=== PATIENT | female | born 1970 | race Caucasian/White ===

== ENCOUNTER → 2017-08-03 08:17 | Outpatient (CLI) | payer OTHER, SELFPAY ==
--- NOTE | 2017-08-03 08:22 | MM_ITS ---
MM Dig screening mamm BI w/CAD CAD Screening ORDERING PHYSICIAN : Pollo Davey MD PATIENT AGE: 47 years GENDER: Female COMPARISON: No prior studies available for comparison. An [id number] from today INDICATION: TECHNIQUE: Standard CC and MLO images were obtained. Additional left breast CC and MLO nipple profile view. Cleavage view of the medial both right & left breast included. R2 CAD reviewed. FINDINGS: Low-density breast bilaterally with no dominant mass nor suspicious calcifications in either breast. RIGHT BREAST:No significant findings. Very minor asymmetry with some minimal density at the superior right breast which the changes from one view to the other. Not of concern follow-up in one year adequate LEFT BREAST:No areas of concern follow-up in one year. IMPRESSION: Negative bilateral mammogram. No areas of significant concern. Follow up one year recommended. BI-RADS Category: 1 Negative RECOMMENDED FOLLOW-UP: 1YR - 1 YEAR FOLLOW-UP (A letter has been sent to the patient regarding results of the study.)
== END ==
PROVIDERS: PCP Family Medicine; Visit Provider Family Medicine
DX: Z12.31 Encounter for screening mammogram for malignant neoplasm of breast (principal)
CPT/HCPCS: 77067

== ENCOUNTER → 2018-09-10 16:18 | Outpatient (CLI) | payer OTHER, SELFPAY ==
--- NOTE | 2018-09-10 16:22 | MM_ITS ---
MM Dig screening mamm BI w/CAD ORDERING PHYSICIAN : Pollo Davey MD PATIENT AGE: 48 years GENDER: Female COMPARISON: July 20142017 digital mammogram studies INDICATION: Routine screening mammogram. No hormones. No new complaints. Noncontributory family history. TECHNIQUE: Standard CC and MLO images were obtained. R2 CAD reviewed. Additional left CC and MLO view nipple profile included FINDINGS: Low-density breast bilaterally. Generalized fatty replacement. No new areas of concern in either breast. CAD computer view highlights no areas of concern either. Bilateral follow-up one year recommended IMPRESSION: Stable bilateral mammogram. No significant new areas of concern. Lower density breast/moderate generalized fatty replacement. Bilateral follow-up one year recommended BI-RADS Category: 1 Negative RECOMMENDED FOLLOW-UP: 1YR 1 YEAR FOLLOW-UP (A letter has been sent to the patient regarding results of the study.)
== END ==
PROVIDERS: PCP Family Medicine; Visit Provider Family Medicine
DX: Z12.31 Encounter for screening mammogram for malignant neoplasm of breast (principal)
CPT/HCPCS: 77067

== ENCOUNTER → 2019-09-30 16:21 | Outpatient (CLI) | payer OTHER, SELFPAY ==
--- NOTE | 2019-09-30 | MM_ITS ---
PROCEDURE: MM DIG SCREENING MAMM BI W/CAD Digital Breast Tomosynthesis Included CLINICAL INDICATION: ROUTINE SCREENING There is no personal or family history of breast cancer. COMPARISON: GB MAMM SCREEN BILAT DIG PNL from 08/07/2014 [facility] MM Dig screening mamm BI w/CAD from 08/03/2017 DIG MAMM-SCREEN [facility]ON from 09/10/2018 TECHNIQUE: Standard CC and MLO images and 3D Tomosynthesis was obtained. R2 CAD reviewed. FINDINGS: The breasts are composed primarily of fat with scattered fibroglandular densities in both breast and the findings are bilateral and symmetrical. There is no suspicious lesion in either breast and no suspicious microcalcifications. IMPRESSION: Fibrofatty parenchyma with no suspicious lesions seen BI-RAD Category: 1 Negative FOLLOW-UP: 1YR 1 Year Follow-up (A letter has been sent to the patient regarding results of the study.) Dictated by: Dr. Ramana Chang MD 10/03/2019 11:[address] Ramana Chang MD in [place] 10/03/2019 11:07
== END ==
PROVIDERS: PCP Family Medicine; Visit Provider Family Medicine
DX: Z12.31 Encounter for screening mammogram for malignant neoplasm of breast (principal)
CPT/HCPCS: 77063; 77067

== ENCOUNTER → 2019-11-24 13:10 | Outpatient (CLI) | payer OTHER, SELFPAY ==
[2019-11-25 17:06] LABS: Covid-19 Nasal PCR Sendout Lex NOT DETECTED
== END ==
PROVIDERS: Visit Provider Internal Medicine Adolescent Medicine
DX: Z03.818 Encounter for observation for suspected exposure to other biological agents ruled out (principal)
CPT/HCPCS: U0004

== ENCOUNTER → 2020-10-26 07:47 | Outpatient (CLI) | payer OTHER, SELFPAY ==
--- NOTE | 2020-10-26 07:51 | MM_ITS ---
PROCEDURE: MM DIG SCREENING MAMM BI W/CAD Digital Breast Tomosynthesis Included CLINICAL INDICATION: SCREENING COMPARISON: MG [facility] MM Dig screening mamm BI w/CAD from 08/03/2017 MG DIG MAMM-SCREEN [facility] from 09/10/2018 MG MM DIG SCREENING MAMM BI W/CAD from 09/30/2019 TECHNIQUE: Standard CC and MLO images and 3D Tomosynthesis was obtained. R2 CAD reviewed. FINDINGS: Mostly fatty replaced fibroglandular tissue. No malignant appearing mass or malignant-appearing microcalcification. IMPRESSION: Negative no evidence of malignancy BI-RAD Category: 1 Negative FOLLOW-UP: 1 YR 1 Year Follow-up (A letter has been sent to the patient regarding results of the study.) Dictated by: Renaldo Prescott MD 10/29/2020 17:37 Renaldo Prescott MD in [place] 10/29/2020 17:37
== END ==
PROVIDERS: PCP Family Medicine; Visit Provider Family Medicine
DX: Z12.31 Encounter for screening mammogram for malignant neoplasm of breast (principal)
CPT/HCPCS: 77063; 77067

== ENCOUNTER → 2021-02-04 08:58 | Outpatient (CLI) | payer OTHER, SELFPAY ==
[2021-02-04 09:10] LABS: Influenza A, PCR Not Detected (NotDetected); Influenza B, PCR Not Detected (NotDetected)
[2021-02-04 09:35] LABS: Coronavirus 19, PCR Detected (NotDetected)
== END ==
PROVIDERS: PCP Family Medicine; Visit Provider Nurse Practitioner
DX: Z20.822 Contact with and (suspected) exposure to COVID-19 (principal); U07.1 COVID-19
CPT/HCPCS: C9803; U0003; U0005

== ENCOUNTER 2021-02-14 11:20 | Outpatient (CLI) | payer OTHER, SELFPAY ==
[2021-02-14 11:49] VITALS: BP 111/70; PULSE 89; RESP 18; TEMP 36.6; O2SAT 99
[2021-02-14 12:49] VITALS: BP 141/77; PULSE 88; RESP 16; TEMP 36.8; O2SAT 99
== END 2021-02-14 12:51 | disposition home or self-care (01) ==
LOC: INF 11:22
PROVIDERS: PCP Family Medicine; Visit Provider Family Medicine
DX: U07.1 COVID-19 (principal); E86.0 Dehydration
CPT/HCPCS: 96360

== ENCOUNTER → 2021-07-01 08:34 | Outpatient (CLI) | payer OTHER, SELFPAY ==
[2021-07-01 10:32] LABS: Alanine Aminotransferase 27 U/L (12-78); Albumin Level 4.4 g/dl (3.5-5.0); Albumin/Globulin Ratio 1.8 (1.1-1.8); Alkaline Phosphatase 60 U/L (38-126); Anion Gap 12.4 mEq/L (5-15); Aspartate Amino Transferase 25 U/L (14-36); Bilirubin,Total 1.1 mg/dl (0.2-1.3); Blood Urea Nitrogen 7 mg/dl (7-17); Calcium 9.5 mg/dl (8.4-10.2); Carbon Dioxide 26 mmol/L (22.0-30.0); Chloride 107 mmol/L (98-107); Chol/HDL Ratio 4.6 (1-3.5); Cholesterol 178 mg/dl (140-200); Estimated Glomerular Filt Rate 75 ml/min (>60); GFR (African American) 91 ML/MIN (>60); Globulin 2.4 g/dL (1.3-3.2); Glucose 96 mg/dl (74-100); HDL Cholesterol 39 mg/dl (40-60); Potassium 4.4 mmoL/L (3.5-5.1); Sodium 141 mmol/L (136-145); Total Protein,Serum 6.8 g/dl (6.3-8.2); Triglycerides 185 mg/dl (30-150); VLDL Cholesterol 37 mg/dL (0-40)
[2021-07-01 10:43] LABS: Direct LDL Cholesterol 92.94 mg/dL (100-129)
[2021-07-01 10:55] LABS: Hemoglobin A1C 5.7 % (4.0-6.0)
== END ==
LOC: LAB 08:35
PROVIDERS: PCP Family Medicine; Visit Provider Family Medicine
DX: I10 Essential (primary) hypertension (principal); E78.5 Hyperlipidemia, unspecified; R73.9 Hyperglycemia, unspecified
CPT/HCPCS: 36415; 80053; 80061; 83036

== ENCOUNTER 2021-07-28 09:28 | Day surgery (SDC) | payer OTHER, SELFPAY ==
[2021-07-21 11:30] VITALS: BMI 37.9
[2021-07-28 09:54] VITALS: BP 136/102; PULSE 88; RESP 18; TEMP 37.1; O2SAT 98
[2021-07-28 10:24] VITALS: O2SAT 98
--- NOTE | 2021-07-28 10:48 | HMH.SCOPE ---
- Procedure: Date: 07/28/21 Patient Date of :: 1970 Procedure Performed:: Screening colonoscopy Indications:: At appropriate age for screening exam Performing Provider:: Shanelle Houser MD Referring Provider:: Pollo Davey MD Sedation:: Propofol Procedure:: After placing the patient in the left lateral decubitus position, the colonoscopy was gently inserted into the rectum and under direct visualization advanced to the cecum which was identified by transillumination in the right lower quadrant, identification of the ileocecal valve, appendiceal orifice, and cecal strap. Color, texture, mucosa, and anatomy of the colon were carefully examined with the scope. Findings:: Anal canal: normal Rectum: normal Sigmoid colon: normal without polyps or inflammatory changes Descending colon: normal without polyps or inflammatory changes Splenic flexure: normal Transverse colon: normal without polyps or inflammatory changes Hepatic flexure: normal Ascending colon: normal without polyps or inflammatory changes Cecum: normal Terminal ileum: not visualized Impression: Normal colonoscopy exam Recommendations:: Repeat colonoscopy exam in about TEN years or so, sooner if clinically indicated Complications:: None Estimated blood obtained (mL): 0
[2021-07-28 10:50] VITALS: BP 85/65; PULSE 80; RESP 18; TEMP 36.7; O2SAT 90
[2021-07-28 11:00] VITALS: BP 105/85; PULSE 91; RESP 16; O2SAT 96
[2021-07-28 11:10] VITALS: BP 118/68; PULSE 77; RESP 16; O2SAT 96
[2021-07-28 11:35] VITALS: BP 134/70; PULSE 67; RESP 16; TEMP 36.7; O2SAT 99
--- NOTE | 2021-07-28 11:57 | P.PN_ITS ---
[facility] Anesthesia Checklist - Patient Identification Patient Identification: Arm Band - Structural Data Admitted From: Home Planned Operative Procedure/s: Colonoscopy Consent for Planned Operative Procedure(s) Verified: Yes Verified Documents: Surgical Consent - NPO Status Verified Time NPO: 04:00 - Airway Assessment C-Spine Mobility Assessed: Yes TMJ Mobility Assessed: Yes Dentition: Good Dentition - Neurological Assessment Level of Consciousness: Awake, Alert, Appropriate - Anesthesia Plan Anesthesia Risk discussed: Yes ASA Class: II Anesthesia Type: MAC [facility] History I have reviewed the patient's past medical history: Yes Medical History: Denies:: Cancer, Diabetes Mellitus Type 1, Diabetes Mellitus Type 2, Internal Pacemaker, MRSA, Seizures *Have you ever received a pneumonia vaccine?: No *Have you received a flu vaccine this season?: Yes Anesthesia experience/problems:: none Other Surgeries: Yes: Hysterectomy-Total. No: Pacemaker Amputation: No Fractures: No - *Social History Last grade of school completed: High school graduate Smoking Status: Never smoker Alcohol Intake: never Substance Use Type: denies use *Occupational Status:: employed Housing: house Household Members: spouse *Travel in the last 8 weeks: None Family Hx:: No significant family history
== END 2021-07-28 11:35 | disposition home or self-care (01) ==
LOC: OUTP 09:29
PROVIDERS: PCP Family Medicine; Visit Provider Internal Medicine Gastroenterology
PROC: 0DJD8ZZ Inspection of Lower Intestinal Tract, Via Natural or Artificial Opening Endoscopic (ICD-10-PCS; CPT 45378; principal; 2021-07-28 10:30)
DX: Z12.11 Encounter for screening for malignant neoplasm of colon (principal); E78.5 Hyperlipidemia, unspecified; I10 Essential (primary) hypertension; Z79.899 Other long term (current) drug therapy
CPT/HCPCS: 45378

== ENCOUNTER → 2021-11-01 07:56 | Outpatient (CLI) | payer OTHER, SELFPAY ==
--- NOTE | 2021-11-01 08:02 | MM_ITS ---
PROCEDURE INFORMATION: Exam: MG Bilateral Screening 3D Mammography Exam date and time: 11/01/2021 8:00 AM Age: 51 years old Clinical indication: Screening examination TECHNIQUE: Imaging protocol: Bilateral Screening tomosynthesis and 2D mammography including computer-aided detection (CAD) when performed. COMPARISON: 1. MG MM DIG SCREENING MAMM BI W/CAD 10/26/2020 8:01 AM 2. MG MM DIG SCREENING MAMM BI W/CAD 09/30/2019 4:31 PM 3. MG DIG MAMM-SCREEN [facility] 09/10/2018 4:28 PM 4. MG [facility] MM Dig screening mamm BI w/CAD 08/03/2017 8:37 AM FINDINGS: MAMMOGRAPHY: Breast composition: There are scattered areas of fibroglandular density. Mass: None. Architectural distortion: No new or suspicious architectural distortion. Calcifications: No new or suspicious calcifications are present Asymmetric density: No new or suspicious asymmetric density is present Skin thickening: None. Axillary adenopathy: None. IMPRESSION: No mammographic evidence of malignancy. Recommend annual screening mammography unless otherwise clinically indicated. ASSESSMENT: BI-RADS category 1: Negative
== END ==
PROVIDERS: PCP Family Medicine; Visit Provider Family Medicine
DX: Z12.31 Encounter for screening mammogram for malignant neoplasm of breast (principal)
CPT/HCPCS: 77063; 77067

== ENCOUNTER → 2022-10-12 07:31 | Outpatient (CLI) | payer OTHER, SELFPAY ==
[2022-10-12 08:18] LABS: Alanine Aminotransferase 31 U/L (12-78); Albumin Level 4.5 g/dl (3.5-5.0); Albumin/Globulin Ratio 1.8 (1.1-1.8); Alkaline Phosphatase 69 U/L (38-126); Anion Gap 12.3 mEq/L (5-15); Aspartate Amino Transferase 25 U/L (14-36); Bilirubin,Total 1.3 mg/dl (0.2-1.3); Blood Urea Nitrogen 10 mg/dl (7-17); Calcium 9.5 mg/dl (8.4-10.2); Carbon Dioxide 24 mmol/L (22.0-30.0); Chloride 109 mmol/L (98-107); Chol/HDL Ratio 4.1 (1-3.5); Cholesterol 172 mg/dl (140-200); Estimated Glomerular Filt Rate 75 ml/min (>60); GFR (African American) 91 ML/MIN (>60); Globulin 2.5 g/dL (1.3-3.2); Glucose 110 mg/dl (74-100); HDL Cholesterol 42 mg/dl (40-60); Potassium 4.3 mmoL/L (3.5-5.1); Sodium 141 mmol/L (136-145); Triglycerides 157 mg/dl (30-150); VLDL Cholesterol 31 mg/dL (0-40)
[2022-10-12 08:29] LABS: Direct LDL Cholesterol 96.37 mg/dL (100-129)
== END ==
LOC: LAB 07:33
PROVIDERS: PCP Family Medicine; Visit Provider Family Medicine
DX: I10 Essential (primary) hypertension (principal); E78.5 Hyperlipidemia, unspecified
CPT/HCPCS: 36415; 80053; 80061

== ENCOUNTER → 2022-11-13 07:52 | Outpatient (CLI) | payer OTHER, SELFPAY ==
--- NOTE | 2022-11-13 07:58 | MM_ITS ---
PROCEDURE INFORMATION: Exam: MG Bilateral Screening 3D Mammography Exam date and time: 11/13/2022 7:56 AM Age: 52 years old Clinical indication: Screening examination TECHNIQUE: Imaging protocol: Bilateral Screening tomosynthesis and 2D mammography including computer-aided detection (CAD) when performed. COMPARISON: 1. MG MM DIG SCREENING MAMM BI W/CAD 11/01/2021 8:00 AM 2. MG MM DIG SCREENING MAMM BI W/CAD 10/26/2020 8:01 AM FINDINGS: MAMMOGRAPHY: Breast composition: The breasts are almost entirely fatty. Mass: None. Architectural distortion: None. Calcifications: No suspicious calcifications. Asymmetric density: None. Skin thickening: None. Axillary adenopathy: None. IMPRESSION: No mammographic evidence of malignancy. Annual screening is recommended unless otherwise clinically indicated. ASSESSMENT: BI-RADS Category 1: Negative
== END ==
PROVIDERS: PCP Family Medicine; Visit Provider Family Medicine
DX: Z12.31 Encounter for screening mammogram for malignant neoplasm of breast (principal)
CPT/HCPCS: 77063; 77067

== ENCOUNTER 2023-09-24 07:24 | Outpatient (CLI) | payer OTHER, SELFPAY ==
[2023-09-24 08:13] LABS: Chloride 108 mmol/L (98-107); Potassium 4.1 mmoL/L (3.5-5.1); Sodium 140 mmol/L (136-145)
[2023-09-24 08:15] LABS: Blood Urea Nitrogen 12 mg/dl (7-17)
[2023-09-24 08:16] LABS: Alanine Aminotransferase 26 U/L (12-78); Albumin Level 4.1 g/dl (3.5-5.0); Albumin/Globulin Ratio 1.5 (1.1-1.8); Alkaline Phosphatase 62 U/L (38-126); Anion Gap 14.1 mEq/L (5-15); Aspartate Amino Transferase 25 U/L (14-36); Bilirubin,Total 0.8 mg/dl (0.2-1.3); Carbon Dioxide 22 mmol/L (22.0-30.0); Cholesterol 273 mg/dl (140-200); Estimated Glomerular Filt Rate 65 ml/min (>60); GFR (African American) 79 ML/MIN (>60); Globulin 2.7 g/dL (1.3-3.2); Total Protein,Serum 6.8 g/dl (6.3-8.2); Triglycerides 201 mg/dl (30-150); VLDL Cholesterol 40 mg/dL (0-40)
[2023-09-24 08:17] LABS: Calcium 9.4 mg/dl (8.4-10.2); Glucose 110 mg/dl (74-100); HDL Cholesterol 39 mg/dl (40-60)
[2023-09-24 08:27] LABS: Direct LDL Cholesterol 176.14 mg/dL (100-129)
== END 2023-09-24 23:59 | disposition home or self-care (01) ==
LOC: LAB 07:24
PROVIDERS: PCP Family Medicine; Visit Provider Family Medicine
DX: I10 Essential (primary) hypertension (principal); E78.5 Hyperlipidemia, unspecified
CPT/HCPCS: 36415; 80053; 80061

== ENCOUNTER 2023-12-27 07:48 | Outpatient (CLI) | payer OTHER, SELFPAY ==
--- NOTE | 2023-12-27 07:51 | MM_ITS ---
PROCEDURE INFORMATION: Exam: MG Bilateral Screening 3D Mammography Exam date and time: 12/27/2023 7:54 AM Age: 53 years old Clinical indication: Screening examination TECHNIQUE: Imaging protocol: Bilateral Screening tomosynthesis and 2D mammography including computer-aided detection (CAD) when performed. COMPARISON: 1. MG MM DIG SCREENING MAMM BI W/CAD 11/13/2022 7:56 AM 2. MG MM DIG SCREENING MAMM BI W/CAD 11/01/2021 8:00 AM FINDINGS: MAMMOGRAPHY: Breast composition: There are scattered areas of fibroglandular density. Mass: No suspicious masses. Architectural distortion: None. Calcifications: No suspicious calcifications. Asymmetric density: None. Skin thickening: None. Axillary adenopathy: None. IMPRESSION: No mammographic evidence of malignancy. Annual screening is recommended unless otherwise clinically indicated. ASSESSMENT: BI-RADS Category 1: Negative.
== END 2023-12-27 23:59 | disposition home or self-care (01) ==
LOC: RAD 07:49
PROVIDERS: PCP Family Medicine; Visit Provider Family Medicine
DX: Z12.31 Encounter for screening mammogram for malignant neoplasm of breast (principal)
CPT/HCPCS: 77063; 77067

== ENCOUNTER 2024-09-24 07:28 | Outpatient (CLI) | payer OTHER, SELFPAY ==
[2024-09-24 08:37] LABS: Basophils # 0.1 K/mm3 (0-0.2); Basophils % 0.8 % (0.1-2.0); Eosinophils # 0.3 Kmm3 (0.0-0.4); Eosinophils % 3.1 % (0.1-12.0); Hematocrit 44.5 % (37.0-47.0); Hemoglobin 14.4 g/dL (12.2-16.2); Immature Granulocytes # 0.07 10^3uL; Immature Granulocytes % 0.8 %; Lymphocytes # 2.8 K/mm3 (0.7-4.5); Lymphocytes % 31.2 % (10-50); Mean Corpuscular HGB Conc 32.4 g/dL (31.8-35.4); Mean Corpuscular Hemoglobin 27.4 pg (27.0-31.2); Mean Corpuscular Volume 84.6 fl (81-99); Mean Platelet Volume 9.5 fl (7.4-10.4); Monocytes # 0.7 K/mm3 (0.1-1.0); Monocytes % 7.6 % (1.7-9.3); Neutrophils # 5.1 K/mm3 (1.8-7.8); Neutrophils % 56.5 % (37.0-80.0); Nucleated Red Blood Cells # 0 10^3/uL; Nucleated Red Blood Cells % 0 %; Platelet Count 231 K/mm3 (142-424); Red Blood Count 5.26 M/mm3 (4.20-5.40); Red Cell Distribution Width 13.7 % (11.5-17.5); Red Cell Distribution Width-SD 41.7 fL; White Blood Count 9.1 K/mm3 (4.8-10.8)
[2024-09-24 09:04] LABS: Albumin Level 4.3 g/dl (3.5-5.0); Chloride 103 mmol/L (98-107); Potassium 4.5 mmoL/L (3.5-5.1); Sodium 140 mmol/L (136-145)
[2024-09-24 09:07] LABS: Alanine Aminotransferase 23 U/L (12-78); Albumin/Globulin Ratio 1.5 (1.1-1.8); Alkaline Phosphatase 55 U/L (38-126); Anion Gap 15.5 mEq/L (5-15); Aspartate Amino Transferase 27 U/L (14-36); Blood Urea Nitrogen 9 mg/dl (7-17); Calcium 9.5 mg/dl (8.4-10.2); Carbon Dioxide 26 mmol/L (22.0-30.0); Cholesterol 248 mg/dl (140-200); Estimated Glomerular Filt Rate 87 ml/min (>60); GFR (African American) 105 ML/MIN (>60); Globulin 2.8 g/dL (1.3-3.2); Glucose 106 mg/dl (74-100); Total Protein,Serum 7.1 g/dl (6.3-8.2); Triglycerides 211 mg/dl (30-150); VLDL Cholesterol 42 mg/dL (0-40)
[2024-09-24 09:08] LABS: Chol/HDL Ratio 6.4 (1-3.5); HDL Cholesterol 39 mg/dl (40-60)
[2024-09-24 09:19] LABS: Direct LDL Cholesterol 160.31 mg/dL (100-129)
[2024-09-24 09:39] LABS: Thyroid Stimulating Hormone 2.75 uIU/mL (0.465-4.68)
[2024-09-24 10:49] LABS: 25-OH Vitamin D, Total 34.4 ng/mL (30-100)
== END 2024-09-24 23:59 | disposition home or self-care (01) ==
LOC: LAB 07:30
PROVIDERS: PCP Family Medicine; Visit Provider Family Medicine
DX: E78.5 Hyperlipidemia, unspecified (principal); N95.1 Menopausal and female climacteric states; I10 Essential (primary) hypertension; R53.83 Other fatigue
CPT/HCPCS: 36415; 80053; 80061; 82306; 84443; 85025

== ENCOUNTER 2025-02-06 07:55 | Outpatient (CLI) | payer OTHER, SELFPAY ==
--- OUTSIDE RECORDS SUMMARY | 2023-09-20 06:30 | XMS_ITS ---
Author Organization [facility] [place] Address [address] [place], [place] [id number] Care Team Providers [employer] Salesperson Name Role Phone Donna Davey Primary Care Provider [phone] Allergies No Known Allergies Results Component Value Reference Range Notes H-Lipid Panel Reviewed date:09/24/2023 10:07:46 PM Interpretation:trigs 201, chol 273, dldl 176, hdl 39, chol/hdl 7 Performing Lab: Notes/Report: Patient Fasting? Y TRIG 201 30-150 mg/dl CHOL 273 140-200 mg/dl DLDL 176.14 100-129 mg/dL VLDL 40 0-40 mg/dL HDL 39 40-60 mg/dl CHLHDL 7.0 1-3.5 H-CMP Reviewed date:09/24/2023 10:07:46 PM Interpretation:cl 108, gluc 110 Performing Lab: Notes/Report: NA 140 136-145 mmol/L K 4.1 3.5-5.1 mmoL/L CL 108 98-107 mmol/L CO2 22 22.0-30.0 mmol/L GAP 14.1 5-15 mEq/L BUN 12 7-17 mg/dl CREATT 0.90 0.52-1.04 mg/dl GFRAA 79 >60 ML/MIN EGFR 65 >60 ml/min GLU 110 74-100 mg/dl CA 9.4 8.4-10.2 mg/dl BILIT 0.8 0.2-1.3 mg/dl AST 25 14-36 U/L ALT 26 12-78 U/L TP 6.8 6.3-8.2 g/dl ALB 4.1 3.5-5.0 g/dl GLOB 2.7 1.3-3.2 g/dL AGRATIO 1.5 1.1-1.8 ALP 62 38-126 U/L REASON FOR VISIT refills and check up, Needs labs, Tdap, & shingles vaccine Medications Medication SIG (Take, Route, Frequency, Duration) Notes Start Date End Date Status Atorvastatin Calcium 10 MG 1 tab(s) orally once a day (at bedtime) Active Altace 10 MG 1 cap(s) orally once daily Active Nebivolol HCl 5 mg TAKE ONE TABLET BY MOUTH EVERY DAY; Duration: 30 Active Maxalt 10 MG 1 tab(s) orally as directed Active Ramipril 10 mg TAKE ONE CAPSULE BY MOUTH EVERY DAY; Duration: 30 Active Bystolic 5 MG 1 tab(s) orally once a day Active Medrol DIRECTED P.O. *Please review and pick correct strength-formulati on from [employer] options. If intended option is not shown, discontinue and re-order from Quick Search* 02/14/2021 Not-Taking hydrOXYzine Pamoate 25 MG 1 cap(s) orally bid prn anxiety Active Vital Signs Weight 255.4 lbs 09/20/2023 Blood pressure systolic 132 mm Hg 09/20/19 24 Blood pressure diastolic 86 mm Hg 024 Heart Rate 76 /min 09/20/2023 Height 66 in 09/20/2023 BMI 41.22 kg/m2 09/20/2023 Encounters Encounter Location Date Provider Diagnosis [facility] [place] [address] [facility] [address] [place] [address], [place] [id number] 09/20/2023 Donna Davey Essential hypertensi on I10 ; Dyslipidemia E78.5 ; Situational anxiety F41.8 and Wax in ear H61.20 Assessments Encounter Date Diagnosis (ICD Code) Assessment Notes Treatment Notes Treatment Clinical Notes Section Notes 09/20/2023 Essential hypertension (ICD-10 - I10) 09/20/2023 Dyslipidemia (ICD-10 - E78.5) 09/20/2023 Situational anxiety (ICD-10 - F41.8) 09/20/2023 Wax in ear (ICD-10 - H61.20) Offered ear irrigation but she declined. Recommend OTC Debrox drops Plan Of Treatment Medication Medication Name Sig Start Date Stop Date Notes Atorvastatin Calcium 10 MG 1 tab(s) oral ly once a day (at bedtime) Altace 10 MG 1 cap(s) orally once daily Bystolic 5 MG 1 tab(s) orally once a day hydrOXYzine Pamoate 25 MG 1 cap(s) orally bid prn anxiety Treatment Notes Assessment Notes Wax in ear Offered ear irrigati on but she declined. Recommend OTC Debrox drops Next Appt Details Follow Up: 1 Year, Reason: Progress Notes * NICOLE SCHILLINGOB:1970 (54 yo F)Acc No.[id number]:09/20/2023 Progress Notes Patient: DANITA ALLEN Provider: Donna Davey M.D. :1970 A ge:53 Y S ex:Female Date:09/20/2023 Address:[facility] [address] , [place], [id number] Subjective: * Chief Complaints: * 1 . Refills and check up. 2. Needs labs, Tdap, & shingles vaccine. * HPI: C ardiology: Pt presents today for a check up and refills. Pt is not fasting today. Denies : Chest Pain. D enies : Short of Breath. D enies : Palpitations. Leg Edema s ome at the end of the day; goes down over night. E NT/respiratory: She complains of her right ear feeling stopped up. No pain. She had some allergy symptoms couple weeks ago which have since resolved but she persists with the sensation in her right ear. Denies : sore throat. D enies : nasal congestion. D enies : Fever. * ROS: D ERMATOLOGY: no R rosa. n o H deloris. G ASTROENTEROLOGY: no N ausea. n o V omiting. n o D iarrhea.? U ROLOGY: no D ifficulty urinating. n o B lood in urine. * Medical History: H ypertension, Migraine headaches, Dysfunctional uterine bleeding, HLP, COVID . * Surgical History: b tl , total hysterectomy-Dr Olmstead 12/2014. * Hospitalization/Major Diagno stic Procedure: n one , [facility]-vomiting and diarrhea 02/09, [facility]UTI 03/26/14. * Family History: F ather: , diagnosed with Diabetes, Hypertension, Heart Disease, Stroke. M other: alive, diagnosed with Hypertension, Heart Disease. 2 brother(s) . 1 son(s) , 2 daughter(s) . .? * Social History: C URRENT TOBACCO USE S moking Status: Patient does NOT smoke, Second hand smoke exposure: No. C affeine: yes, frequency:. Marital Status: . Past smoking status: no, Second hand smoke exposure: No. * Medications: T aking Atorvastatin Calcium 10 MG Tablet 1 tab(s) orally once a day (at bedtime) , Taking Altace 10 MG Capsule 1 cap(s) orally once daily , Taking Bystolic 5 MG Tablet 1 tab(s) orally once a day , Taking hydrOXYzine Pamoate 25 MG Capsule 1 cap(s) orally bid prn anxiety , Taking Maxalt 10 MG Tablet 1 tab(s) orally as directed , Taking Ramipril 10 mg Capsule TAKE ONE CAPSULE BY MOUTH EVERY DAY , Taking Nebivolol HCl 5 mg Tablet TAKE ONE TABLET BY MOUTH EVERY DAY , Not-Taking Medrol DIRECTED P.O. , Notes to Pharmacist: *Please review and pick correct strength-formulation from [employer] options. If intended option is not shown, discontinue and re-order from Quick Search*, Medication List reviewed and reconciled with the patient * Allergies: N .K.D.A. Objective: * Vitals: W t:255.4, Temp:98.0, BP:132/86, HR:76, Nurse:DANIEL, Ht: 66, BMI:41.22. * Examination: C ardiology: General Appearance: p leasant, NAD. H EENT: E xternal canals occluded with wax and TMs obscured. Nares patent. Throat clear . C arotid upstroke: n ormal, no bruits. H eart sounds: R RR, normal S1, S2. M urmur, click , gallop: n one. L ungs: c lear, no rales or wheezes. E xtremities:?no leg edema. Assessment: * Assessment: 1. E ssential hypertension - I10 (Primary) 2 . D yslipidemia - E78.5 ? 3 . S ituational anxiety - F41.8 4 . W ax in ear - H61.20 ? Plan: * Treatment: 2. D yslipidemia Refill Atorvastatin Calcium Tablet, 10 MG, 1 tab(s), orally, once a day (at bedtime), 30, Refills 11. 3. S ituational anxiety Refill hydrOXYzine Pamoate Capsule, 25 MG, 1 cap(s), orally, bid prn anxiety, 30, Refills 5. ? 4. W ax in ear Notes: Offered ear irrigation but she declined. Recommend OTC Debrox drops * Labs: * L ab: H-Lipid Panel (Collection Date & Time - 09/24/2023 07:28 AM) t rigs 201, chol 273, dldl 176, hdl 39, chol/hdl 7 Value Reference Range T RIG 201 H 30-150 - mg/dl * C HOL 273 H 140-200 - mg/dl * D LDL 176.14 H 100-129 - mg/dL * V LDL 40 0-40 - mg/dL * H DL 39 L 40-60 - mg/dl * C HLHDL 7.0 H 1-3.5 - * Donna Davey 09/24/2023 1 0:07:38 PM >See phone encounter ?Lab: H-CMP (Collection Date & Time - 09/24/2023 07:28 AM)?cl 108, gluc 110 * Value Reference Range N A 140 136-145 - mmol/L * K 4.1 3.5-5.1 - mmoL/L * C L 108 H 98-107 - mmol/L * C O2 22 22.0-30.0 - mmol/L * G AP 14.1 5-15 - mEq/L * B UN 12 7-17 - mg/dl * C REATT 0.90 0.52-1.04 - mg/dl * G FRAA 79 >60 - ML/MIN * E GFR 65 >60 - ml/min * G SREEDHAR 110 H 74-100 - mg/dl * C A 9.4 8.4-10.2 - mg/dl * B ILIT 0.8 0.2-1.3 - mg/dl * A ST 25 14-36 - U/L * A LT 26 12-78 - U/L * T P 6.8 6.3-8.2 - g/dl * A LB 4.1 3.5-5.0 - g/dl * G LOB 2.7 1.3-3.2 - g/dL * A GRATIO 1.5 1.1-1.8 - * A LP 62 38-126 - U/L * Donna Davey 09/24/2023 1 0:07:38 PM >See phone encounter * Follow Up: 1 Year * Images: Billing Information: * Visit Code: 57777 Office Visit, Est Pt., Level 3. * Procedure Codes: * Electronic signature of Donna Davey MD on 02/06/2025 at 07:57 AM EST Sign off status: Pending * Provider: Donna Davey M.D. Date: 0 09/20/2023 Generated for Carlosi savanah/Dagmar/eTransmitting on: 1 04/08/2024 07:57 AM EST History and Physical Notes * HPI (History of Present Illness) Category Sub-Category Detail Notes Category Not es ENT/respiratory sore throat Fever nasal congestion Cardiology Short of Breath Chest Pain Palpitations Leg Edema some at the end of t he day; goes down over night Examination Category Sub-Category Detail Notes Category Not es Cardiology Lungs: clear, no rales or wheezes HEENT: External canals occl uded with wax and TMs obscured. Nares patent. Throat clear Heart sounds: RRR, normal S1, S2 Carotid upstroke: normal, no bruits Extremities: no leg edema Murmur, click , gallop: none General Appearance: pleasant, NAD
--- OUTSIDE RECORDS SUMMARY | 2024-09-23 10:00 | XMS_ITS ---
Author Organization [facility] Address [address] [place], [place] [id number] Care Team Providers Care Manager Of Sales Name Role Phone Donna Davey Primary Care Provider Allergies Allergen (clinical drug ingredient) Drug/Non Drug Allergy documented on EMR Reaction Allergy Type Onset Date Status atorvastatin Atorvastatin Flu like symptoms Drug Allergy Active Results Component Value Reference Range Notes H-TSH Reviewed date:09/30/2024 12:52:53 PM Interpretation: Performing Lab: Notes/Report: H-CBC Reviewed date:09/30/2024 12:53:07 PM Interpretation: Performing Lab: Notes/Report: H-Lipid Panel Reviewed date:09/30/2024 12:53:21 PM Interpretation: Performing Lab: Notes/Report: H-CMP Reviewed date:09/30/2024 12:53:35 PM Interpretation: Performing Lab: Notes/Report: H-Vitamin D 1,25 Reviewed date:09/30/2024 12:53:48 PM Interpretation: Performing Lab: Notes/Report: REASON FOR VISIT checkup with refills, Needs labs, Tdap, & shingles vaccine Medications Medication SIG (Take, Route, Frequency, Duration) Notes Start Date End Date Status hydrOXYzine Pamoate 25 MG 1 cap(s) orall y bid prn anxiety Active Nebivolol HCl 5 mg TAKE ONE TABLET BY M OUTH EVERY DAY; Duration: 30 days Active Maxalt 10 MG 1 tab(s) orally as directed Active Ramipril 10 mg TAKE ONE CAPSULE BY MOUTH EVERY DAY; Duration: 30 days Active Problems Problem Type SNOMED Code ICD Code Onset Dates Problem Status W/U Status Risk Notes Problem Body mass index 40+ - morbidly obese (639384811) BMI 40.0-44.9, adult (Z68.41) Active confirmed Vital Signs Weight 253.2 lbs 09/23/2024 Blood pressure systolic 130 mm Hg 09/24/19 25 Blood pressure diastolic 76 mm Hg 025 Heart Rate 67 /min 09/23/2024 Height 66 in 09/23/2024 BMI 40.86 kg/m2 09/23/2024 Encounters Encounter Location Date Provider Diagnosis [facility] [address] [place], [place] [id number] 09/23/2024 Donna Davey Essential hypertensi on I10 ; Dyslipidemia E78.5 ; Situational anxiety F41.8 ; Fatigue R53.83 ; Post menopausal syndrome Z78.0 ; BMI 40.0-44.9, adult Z68.41 and Snoring R06.83 Assessments Encounter Date Diagnosis (ICD Code) Assessment Notes Treatment Notes Treatment Clinical Notes Section Notes 09/23/2024 Essential hypertension (ICD-10 - I10) 09/23/2024 Dyslipidemia (ICD-10 - E78.5) 09/23/2024 Situational anxiety (ICD-10 - F41.8) 09/23/2024 Fatigue (ICD-10 - R53.83) 09/23/2024 Post menopausal syndrome (ICD-10 - Z78.0) 09/23/2024 BMI 40.0-44.9, adult (ICD-10 - Z68.41) 09/23/2024 Snoring (ICD-10 - R06.83) Plan Of Treatment Medication Medication Name Sig Start Date Stop Date Notes Nebivolol HCl 5 mg TAKE ONE TABLET BY M OUTH EVERY DAY; Duration: 30 days Ramipril 10 mg TAKE ONE CAPSULE BY MOUTH EVERY DAY; Duration: 30 days Pending Test Test Name Order Date sleep study 09/23/2024 Next Appt Details Follow Up: 1 Year, Reason: Progress Notes * NICOLE SCHILLINGOB:1970 (54 yo F)Acc No.[id number]:09/23/2024 Progress Notes Patient: DANITA ALLEN Provider: Donna Davey M.D. :1970 A ge:54 Y S ex:Female Date:09/23/2024 Address:[address], [place], [id number] Subjective: * Chief Complaints: * 1 . Checkup with refills. 2. Needs labs, Tdap, & shingles vaccine. * HPI: C ardiology: She comes in for annual follow-up on her hypertension. She does not monitor her blood pressure regularly at home but denies headaches, dizziness, visual changes, chest pain, palpitations, shortness of breath, or swelling. She does complain of some generalized fatigue. She does not exercise outside of her full-time job. She feels like she sleeps well at night but does admit to fairly heavy snoring. There is a significant family history of sleep apnea. She quit taking Lipitor again stating it made her feel like she had the flu . * ROS: D ERMATOLOGY: no R rosa. n o H deloris. G ASTROENTEROLOGY: no N ausea. n o V omiting. U ROLOGY: no D ifficulty urinating. n o B lood in urine. * Medical History: H ypertension, Migraine Headaches, Dysfunctional Uterine Bleeding, Hyperlipidemia. * Surgical History: b tl , total hysterectomy-Dr Olmstead 12/2014. * Hospitalization/Major Diagno stic Procedure: V omiting and Diarrhea- [facility] 01/2010, UTI- [facility] 03/26/2014. * Family History: F ather: , diagnosed with Hypertension, Diabetes, Stroke, Heart Disease. M other: alive, diagnosed with Hypertension, Heart Disease. 2 brother(s) . 1 son(s) , 2 daughter(s) . .? * Social History: C URRENT TOBACCO USE: No . C affeine: yes, frequency:. Marital Status: . Past smoking status: no, Second hand smoke exposure: No. * Medications: T aking Ramipril 10 mg Capsule TAKE ONE CAPSULE BY MOUTH EVERY DAY , Taking Nebivolol HCl 5 mg Tablet TAKE ONE TABLET BY MOUTH EVERY DAY , Taking hydrOXYzine Pamoate 25 MG Capsule 1 cap(s) orally bid prn anxiety , Taking Maxalt 10 MG Tablet 1 tab(s) orally as directed , Discontinued Altace 10 MG Capsule 1 cap(s) orally once daily , Discontinued Bystolic 5 MG Tablet 1 tab(s) orally once a day , Discontinued Atorvastatin Calcium 10 MG Tablet 1 tab(s) Orally once a day (at bedtime) , Discontinued Medrol DIRECTED P.O. , Notes to Pharmacist: *Please review and pick correct strength-formulation from Medispan options. If intended option is not shown, discontinue and re-order from Quick Search*, Medication List reviewed and reconciled with the patient * Allergies: A torvastatin: Flu like symptoms - Side Effects. Objective: * Vitals: W t: 253.2, Temp: 97.4, BP: 130/76, HR: 67, Nurse: coleman/alicia, Ht: 66, BMI:40.86. * Examination: C ardiology: General Appearance: p [...] S ituational anxiety - F41.8 4 . F atigue - R53.83 ?5. P ost menopausal syndrome - Z78.0 6 . B LA 40.0-44.9, adult - Z68.41 7 . S noring - R06.83 Plan: * Treatment: 2. S polo patel: sleep study * Labs: * L ab: H-Lipid Panel (Collection Date & Time - 09/30/2024) ?Lab: H-CMP (Collection Date & Time - 09/30/2024)* see duplicate order ?Lab: H-CBC (Collection Date & Time - 09/30/2024)* see duplicate order ?Lab: H-Vitamin D 1,25 (Collection Date & Time - 09/30/2024)* see duplicate order ?Lab: H-TSH (Collection Date & Time - 09/30/2024)* see duplicate order * Procedure Codes: 1 036F TOBACCO NON-USER, G8950 PREHTN/HTN BP DOC INDCD F/U DOC, G8752 MOST RECENT SYSTOLIC BP < 140MM HG, G8754 MOST RECENT DIASTOLIC BP < 90MM HG * Follow Up: 1 Year * Images: Billing Information: * Visit Code: 13371 Office Visit, Est Pt., Level 3. * Procedure Codes: 1036F TOBACCO NON-USER. G8950 PREHTN/HTN BP DOC INDCD F/U DOC. G8752 MOST RECENT SYSTOLIC BP < 140MM HG. G8754 MOST RECENT DIASTOLIC BP < 90MM HG. * Electronic signature of Donna Davey MD on 02/06/2025 at 07:58 AM EST Sign off status: Pending * Provider: Donna Davey M.D. Date: 0 09/23/2024 Generated for Suzanne pavon/Dagmar/eTransmitting on: 04/08/2024 07:58 AM EST History and Physical Notes * Examination Category Sub-Category Detail Notes Category Not es Cardiology Lungs: clear, no rales or wheezes HEENT: External canals occl uded with wax and TMs obscured. Nares patent. Throat clear Heart sounds: RRR, normal S1, S2 Carotid upstroke: normal, no bruits Extremities: no leg edema Murmur, click , gallop: none General Appearance: pleasant, NAD
--- OUTSIDE RECORDS SUMMARY | 2024-12-31 10:00 | XMS_ITS ---
Author Organization [facility] Address [address] [facility] [address] [place] [id number] Care Team Providers Care Investment Counselor Name Role Phone Donna Davey Primary Care Provider Suzanna Ortiz [phone] Allergies Allergen (clinical drug ingredient) Drug/Non Drug Allergy documented on EMR Reaction Allergy Type Onset Date Status atorvastatin Atorvastatin Flu like symptoms Drug Allergy Active REASON FOR VISIT shingles Medications Medication SIG (Take, Route, Frequency, Duration) Notes Start Date End Date Status Maxalt 10 MG 1 tab(s) orally as directed Active Ondansetron 4 MG 1 tablet on the tong ue and allow to dissolve Orally 3 times a day, prn 12/31/2024 Active Nebivolol HCl 5 mg TAKE ONE TABLET BY M OUTH EVERY DAY; Duration: 30 days Active Ramipril 10 mg TAKE ONE CAPSULE BY MOUTH EVERY DAY; Duration: 30 days Active hydrOXYzine Pamoate 25 MG 1 cap(s) orall y bid prn anxiety Active Vital Signs Weight 240.6 lbs 12/31/2024 Blood pressure systolic 126 mm Hg 01/01/20 25 Blood pressure diastolic 70 mm Hg 025 Heart Rate 93 /min 12/31/2024 Height 66 in 12/31/2024 BMI 38.83 kg/m2 12/31/2024 Encounters Encounter Location Date Provider Diagnosis [facility] [address] [place] [id number] 12/31/2024 Suzanna Ortiz Herpes zoster withou t complication B02.9 and Nausea R11.0 Assessments Encounter Date Diagnosis (ICD Code) Assessment Notes Treatment Notes Treatment Clinical Notes Section Notes 12/31/2024 Herpes zoster without complication (ICD-10 - B02.9) Patient declines antivirals. 12/31/2024 Nausea (ICD-10 - R11.0) Plan Of Treatment Medication Medication Name Sig Start Date Stop Date Notes Ondansetron 4 MG 1 tablet on the tong ue and allow to dissolve Orally 3 times a day, prn 12/31/2024 Treatment Notes Assessment Notes Herpes zoster without complication Patie nt declines antivirals. Next Appt Details Follow Up: prn, Reason: Progress Notes * NICOLE SCHILLINGOB:1970 (54 yo F)Acc No.[id number]:12/31/2024 Progress Notes Patient: DANITA ALLEN Provider: YFN Og :1970 A ge:54 Y S ex:Female Date:12/31/2024 Address:[address] [place] [address], [facility] [id number] Pcp:Donna Davey Subjective: * Chief Complaints: * 1 . Shingles. * HPI: D ermatology: 54 year old female presents with c/o rash P t states she thinks she has shingles on her left side. Pt states it began l ast week and it has been hurting her since then. She has been sick to her stomach. * ROS: C ARDIOLOGY: no D izziness. n o C hest pain. G ASTROENTEROLOGY: Nausea y es. n o V omiting. n o D iarrhea.? U ROLOGY: no D ifficulty urinating. n o B lood in urine. * Medical History: H ypertension, Migraine Headaches, Dysfunctional Uterine Bleeding, Hyperlipidemia. * Surgical History: b tl , total hysterectomy-Dr Olmstead 12/2014. * Hospitalization/Major Diagno stic Procedure: V omiting and Diarrhea- [facility] ER 01/2010, UTI- [facility] 03/26/2014. * Family History: F ather: , diagnosed with Hypertension, Diabetes, Stroke, Heart Disease. M other: alive, diagnosed with Hypertension, Heart Disease. 2 brother(s) . 1 son(s) , 2 daughter(s) . .? * Social History: C URRENT TOBACCO USE: No . C affeine: yes, frequency:. Marital Status: . Past smoking status: no, Second hand smoke exposure: No. * Medications: T aking hydrOXYzine Pamoate 25 MG Capsule 1 cap(s) orally bid prn anxiety , Taking Maxalt 10 MG Tablet 1 tab(s) orally as directed , Taking Ramipril 10 mg Capsule TAKE ONE CAPSULE BY MOUTH EVERY DAY , Taking Nebivolol HCl 5 mg Tablet TAKE ONE TABLET BY MOUTH EVERY DAY , Discontinued Zetia 10 MG Tablet 1 tablet Orally Once a day , Medication List reviewed and reconciled with the patient * Allergies: A torvastatin: Flu like symptoms - Side Effects. Objective: * Vitals: W t: 240.6, Temp: 98.5, BP: 126/70, HR: 93, Nurse: coleman, Ht: 66, BMI:38.83. * Examination: G eneral Examination: General Appearance: N AD. C hest: n ormal shape and expansion. H eart: R SR. L ungs: c lear to auscultation. A bdomen: b owel sounds present, soft and nontender. S kin: e rythematous vesicular rash on the left side of the lower abdomen, tender. Assessment: * Assessment: 1. H erpes zoster without complication - B02.9 (Primary) 2 . N ausea - R11.0 Plan: * Treatment: 2. N ausea Start Ondansetron Tablet Disintegrating, 4 MG, 1 tablet on the tongue and allow to dissolve, Orally, 3 times a day, prn, 30, Refills 1. * Procedure Codes: 1 036F TOBACCO NON-USER, 3074F SYST BP LT 130 MM HG, 3078F DIAST BP < 80 MM HG * Follow Up: p rn * Images: Billing Information: * Visit Code: 71266 Office Visit, Est Pt., Level 3. * Procedure Codes: 1036F TOBACCO NON-USER. 3074F SYST BP LT 130 MM HG. 3078F DIAST BP < 80 MM HG. * Electronic signature of YFN Hardwick on 02/06/2025 at 07:57 AM EST Sign off status: Pending * Provider: YFN Og Date: Generated for Suzanne pavon/Dagmar/eTransmitting on: 04/08/2024 07:57 AM EST History and Physical Notes * HPI (History of Present Illness) Category Sub-Category Detail Notes Category Not es Dermatology rash Pt states she th inks she has shingles on her left side. Pt states it began last week and it has been hurting her since then. She has been sick to her stomach Examination Category Sub-Category Detail Notes Category Not es General Examination Heart: RSR Lungs: clear to auscultatio n Abdomen: bowel sounds present , soft and nontender General Appearance: NAD Skin: erythematous vesicul ar rash on the left side of the lower abdomen, tender Chest: normal shape and exp ansion
--- NOTE | 2025-02-06 07:56 | MM_ITS ---
PROCEDURE INFORMATION: Exam: MG Bilateral Screening 3D Mammography Exam date and time: 02/06/2025 8:01 AM Age: 54 years old Clinical indication: Screening examination TECHNIQUE: Imaging protocol: Bilateral Screening tomosynthesis and 2D mammography including computer-aided detection (CAD) when performed. COMPARISON: 1. MG MM DIG SCREENING MAMM BI W/CAD 12/27/2023 7:54 AM 2. MG MM DIG SCREENING MAMM BI W/CAD 11/13/2022 7:56 AM FINDINGS: MAMMOGRAPHY: Breast composition: There are scattered areas of fibroglandular density. Mass: No suspicious masses. Architectural distortion: None. Calcifications: No suspicious calcifications. Asymmetric density: None. Skin thickening: None. Axillary adenopathy: None. IMPRESSION: No mammographic evidence of malignancy. Annual screening is recommended unless otherwise clinically indicated. ASSESSMENT: BI-RADS Category 1: Negative.
--- OUTSIDE RECORDS SUMMARY | 2025-02-06 07:57 | XMS_ITS | Patient Health Record ---
Author Organization [facility] Address [address] [phone] Care Team Providers Care Ict Trainer Name Role Phone Donna Davey Primary Care Provider Suzanna Ortiz [phone] Allergies Allergen (clinical drug ingredient) Drug/Non Drug [...] date:09/30/2024 12:53:48 PM Interpretation: Performing Lab: Notes/Report: H-TSH Reviewed date:10/07/2024 08:26:56 AM Interpretation:Normal Performing Lab: Notes/Report: TSH 2.75 0.465-4.68 uIU/mL H-CBC Reviewed date:10/07/2024 08:26:56 AM Interpretation:Normal Performing Lab: Notes/Report: WBC 9.1 4.8-10.8 K/mm3 RBC 5.26 4.20-5.40 M/mm3 HGB 14.4 12.2-16.2 g/dL HCT 44.5 37.0-47.0 % MCV 84.6 81-99 fl MCH 27.4 27.0-31.2 pg MCHC 32.4 31.8-35.4 g/dL RDW-SD 41.7 RDW 13.7 11.5-17.5 % PLT 231 142-424 K/mm3 MPV 9.5 7.4-10.4 fl NE% 56.5 37.0-80.0 % LY% 31.2 10-50 % MO% 7.6 1.7-9.3 % EO% 3.1 0.1-12.0 % BA% 0.8 0.1-2.0 % NRBC% 0 IG% 0.8 NE# 5.1 1.8-7.8 K/mm3 LY# 2.8 0.7-4.5 K/mm3 MO# 0.7 0.1-1.0 K/mm3 EO# 0.3 0.0-0.4 Kmm3 BA# 0.1 0-0.2 K/mm3 NRBC# 0 IG# 0.07 H-CMP Reviewed date:10/07/2024 08:26:56 AM Interpretation:Normal Performing Lab: Notes/Report: NA 140 136-145 mmol/L K 4.5 3.5-5.1 mmoL/L CL 103 98-107 mmol/L ALB 4.3 3.5-5.0 g/dl H-Lipid Panel Reviewed date:10/07/2024 08:26:56 AM Interpretation:TC 248; LDL 160 Performing Lab: Notes/Report: Patient Fasting? Y TRIG 211 30-150 mg/dl CHOL 248 140-200 mg/dl VLDL 42 0-40 mg/dL HDL 39 40-60 mg/dl CHLHDL 6.4 1-3.5 H-VITAMIN D Reviewed date:10/07/2024 08:26:56 AM Interpretation:34.4 Performing Lab: Notes/Report: TVITD 34.4 30-100 ng/mL Deficient <20 ng/mL Insufficient 20-30 ng/mL Sufficient 30-100 ng/mL Potential Toxicity >100 ng/mL Medications Medication SIG (Take, Route, Frequency, Duration) Notes Start Date End Date Status Maxalt 10 MG 1 tab(s) orally as directed Active hydrOXYzine Pamoate 25 MG 1 cap(s) orall y bid prn anxiety Active Ondansetron 4 MG 1 tablet on [...] Problem Status W/U Status Risk Notes Problem Information temporarily unavailable Migraine, unspecified, without mention of intractable migraine (346.90) Active confirmed Problem Information temporarily unavailable HTN [Hypertension] (401.9) Active confirmed Problem Information temporarily unavailable Essential hypertension (I10) Active confirmed Problem Information temporarily unavailable Situational anxiety (F41.8) Active confirmed Problem Information temporarily unavailable Depressive disorder (F32.9) Active confirmed Problem Information temporarily unavailable Gastroesophageal reflux disease without esophagitis (K21.9) Active confirmed Problem Information temporarily unavailable BMI 38.0-38.9,adult (Z68.38) Active confirmed Problem Information temporarily unavailable BMI 40.0-44.9, adult (Z68.41) Active confirmed Problem Information temporarily unavailable Dyslipidemia (E78.5) Active confirmed Vital Signs Heart Rate 93 /min 12/31/2024 Blood pressure diastolic 70 mm Hg 12/31/2024 Height 66 in 12/31/2024 Blood pressure systolic 126 mm Hg 12/31/2024 Weight 240.6 lbs 12/31/2024 BMI 38.83 kg/m2 12/31/2024 Encounters Encounter Location Date Provider Diagnosis [facility] [address] [facility] [address] [place] [id number] 09/23/2024 Donna Davey Essential hypertensi on I10 ; Dyslipidemia E78.5 ; Situational anxiety F41.8 ; Fatigue R53.83 ; Post menopausal syndrome Z78.0 ; BMI 40.0-44.9, adult Z68.41 and Snoring R06.83 [facility] [address] [facility] [address] [place] [id number] 12/31/2024 Suzanna Ortiz Herpes zoster withou t complication B02.9 and Nausea R11.0 [facility] [address] [facility] [address] [place] [id number] 04/15/2024 [facility] [address] [facility] [address] [place] [id number] 10/07/2024 R Hardeep Davey [facility] [address] [place] [id number] 10/13/2024 R Hardeep Davey [facility] [address] [facility] [address] [place] [phone] 01/16/2025 R Hardeep Davey Assessments Encounter Date Diagnosis (ICD Code) Assessment Notes Treatment Notes Treatment Clinical Notes Section Notes 09/23/2024 Essential hypertension (ICD-10 - I10) 09/23/2024 Dyslipidemia (ICD-10 - E78.5) 12/31/2024 Nausea (ICD-10 - R11.0) 12/31/2024 Herpes zoster without complication (ICD-10 - B02.9) Patient declines antivirals. 09/23/2024 Situational anxiety (ICD-10 - F41.8) 09/23/2024 Fatigue (ICD-10 - R53.83) 09/23/2024 Post menopausal syndrome (ICD-10 - Z78.0) 09/23/2024 BMI 40.0-44.9, adult (ICD-10 - Z68.41) 09/23/2024 Snoring (ICD-10 - R06.83) Plan Of Treatment Pending Test Test Name Order Date sleep study 09/23/2024 Mammogram 01/16/2025 Insurance Providers Payer Name Payer Address Payer Phone Subscriber Number Group Number Insured Name Patient Relationship to Insured Coverage Start Date Coverage End Date [facility] [address] [address] [place] [phone] [id number] SHADI SCHILLING Spouse - patient is the spouse of the insured Medical (General) History Medical History History ICD Code Hypertension Migraine Headaches Dysfunctional Uterine Bleeding Hyperlipidemia Surgical History Surgery Date(Month/Year) btl total hysterectomy-Dr Olmstead 12/2014 Hospitalization History Reason Date(Month/Year) UTI- [facility] ER 03/26/2014 Vomiting and Diarrhea- [facility] ER 01/2010
--- OUTSIDE RECORDS SUMMARY | 2025-02-06 07:57 | XMS_ITS | Clinical Summary ---
Author Organization [facility] Address [address] [place] [address] Care Team Providers Care Research Technician Name Role Phone Pollo Davey MD Primary Care Provider Social History Tobacco Use Types Packs/Day Years Used Date Smoking Tobacco: Never Assessed Abuse Screen Answer Date Recorded Unsafe at Home or Work/School Not on file Feels Threatened by Someone? Not on file 12/2022 Does Anyone Keep You from Co ntacting Others or Doint Things Outside the Home? Not on file 01/09/2023 Physical Sign of Abuse Present Not on file 1 Housing Stability Answer Date Recorded Current Living Arrangements Not on file 12/31 Potentially Unsafe Housing Conditions Not on jamison e 01/09/2023 Family and Community Support Answer Rodrigo e Recorded Help with Day-to-Day Activities Not on file 01/09/2023 Lonely or Isolated Not on file 01/09/2023 Employment Answer Date Recorded Do you want help finding or keeping work or a cuate b? Not on file 01/09/2023 Disabilities Answer Date Recorded Concentrating, Remembering, or Making Decisions Difficulty Not on file 01/09/2023 Doing Errands Independently Difficulty Not on fi le 01/09/2023 Education Answer Date Recorded Help with school or training? Not on file Preferred Language Not on file 01/09/2023 Comments Unknown Sex and Gender Information Value Date Recorded Sex Assigned at Not on file Legal Sex Female 1:46 PM EDT Gender Identity Not on file Sexual Orientation Not on file Plan of Treatment Health Maintenance Due Date Last Done Comments ANNUAL PHYSICAL 1970 Annual Gynecologic Pelvic and Breast Exam 1970 HEPATITIS C SCREENING 1970 TDAP/TD VACCINES (1 - Tdap) 1988 COLOGUARD 2014 COLON CANCER SCREENING 5 YEAR SIGMOIDOSCOPY 2014 COLONOSCOPY [address] CANCER SCREENING 2014 CT COLONOGRAPHY 2014 FECAL OCCULT BLOOD TEST 2014 FIT Testing (1 year) 2014 MAMMOGRAM 08/07/2016 08/07/2014 Pneumococcal Vaccine 50+ (1 of 1 - PCV) 06/18/2019 ZOSTER VACCINE (1 of 2) 06/18/2019 INFLUENZA VACCINE 10/31/2024 Procedures Procedure Name Priority Date/Time Associated Diagnosis Comments MAMMO SCREENING BILATERAL W CAD Routine 08/07/2014 12:43 PM EDT from Last 3 Months or Most Recently Relevant to Health Maintenance Results * MAMMOGRAPHY SCREENING BILATERAL (08/07/2014 12:43 PM EDT) Anatomical Region Laterality Modality Breast Bilateral Mammography 08/07/2014 12:4 3 PM EDT Narrative 08/10/2014 10:15 AM EDT EXAMINATION: BILATERAL SCREENING DIGITAL MAMMOGRAM WITH TOMOSYNTHESIS: HISTORY: Routine screening. IMAGE COMPARISON: This is the patient's baseline exam.. TECHNIQUE: Low dose full field digital breast tomosynthesis examination was performed with 2D and 3D acquisitions. FINDINGS: There are scattered areas of fibroglandular density. There is no mass, worrisome microcalcifications, or architectural distortion to suggest malignancy. IMPRESSION- No findings suspicious for malignancy. ACR BI-RADS CATEGORY I, NEGATIVE RECOMMENDATION: Yearly mammogram, yearly physical exam, and monthly self breast exam. CAD was used. The standard false negative rate of mammography is between 10% and 25%. Complex patterns or increased breast density will markedly elevate the false negative rate of mammography. A letter, in lay terminology, with the results of this exam will be mailed to the patient. If there is a palpable area of concern, biopsy should be considered regardless of imaging findings. DE: 08/10/2014 Reading Radiologist- RICHARD MORA Releasing Radiologist- RICHARD MORA Released Date Time- 08/10/14 1029 Community Development Planner- Madeleine us Magali Olmstead MD IMG MAMMOGRAPHY ORDERABLES Fi nal Result from Last 3 Months or Most Recently Relevant to Health Maintenance Care Teams Research Technician Relationship Specialty Start Date End Date Pollo Davey MD [address] [facility] [address] [facility] [address] [place] [address] PCP - General 12/30/14
== END 2025-02-06 23:59 | disposition home or self-care (01) ==
LOC: RAD 07:55
PROVIDERS: PCP Family Medicine; Visit Provider Family Medicine
DX: Z12.31 Encounter for screening mammogram for malignant neoplasm of breast (principal); R92.323 Mammographic fibroglandular density, bilateral breasts
CPT/HCPCS: 77063; 77067